=== PATIENT | female | born 1965 | race African-American/Black ===

== ENCOUNTER 2021-07-26 17:50 | Emergency (ER) | payer MEDICAID, OTHER ==
[~2021-07-26] VITALS: Ht 160 cm; Wt 63.0 kg
[2021-07-26] MEDS ORDERED: CEPH500T MT (19:18)
[2021-07-26 19:27] VITALS: BP 128/74
== END 2021-07-26 19:28 | disposition home or self-care (01) ==
LOC: ER 17:50
DX: L03.115 Cellulitis of right lower limb (principal); E05.90 Thyrotoxicosis, unspecified without thyrotoxic crisis or storm
CPT/HCPCS: 99282

== ENCOUNTER 2021-07-29 13:16 | Emergency (ER) | payer OTHER ==
[~2021-07-29] VITALS: Ht 154.9 cm; Wt 77.0 kg
[~2021-07-29 13:16] MED LIST: CEPH500T MT
[2021-07-29 13:33] VITALS: BP 122/82
[2021-07-29] MEDS ORDERED: FLUORESCEIN SODIUM 1MG/STRIP LEFTEYE ONE (15:00)
[2021-07-29] MEDS ORDERED: TETRACAINE 0.5% OPHTH DROPS 4ML LEFTEYE ONE (15:00)
[2021-07-29] MEDS ORDERED: AMOX500T2 PO (16:12)
[2021-07-29] MEDS ORDERED: SULF1TAB48 MT (16:12)
== END 2021-07-29 16:33 | disposition home or self-care (01) ==
LOC: ER 13:16
DX: L03.213 Periorbital cellulitis (principal); Z98.890 Other specified postprocedural states
CPT/HCPCS: 99283

== ENCOUNTER 2021-07-31 12:37 | Emergency (ER) | payer OTHER ==
[~2021-07-31] VITALS: Ht 165.1 cm; Wt 75.0 kg
[~2021-07-31 12:37] MED LIST changes: +AMOX500T2 PO; +SULF1TAB48 MT
[2021-07-31 12:44] VITALS: BP 138/93
[2021-07-31] MEDS ORDERED: CETI-338 PO (14:47)
[2021-07-31] MEDS ORDERED: HYDR453.3 TP (14:47)
== END 2021-07-31 14:53 | disposition home or self-care (01) ==
LOC: ER 12:37
DX: S00.86XA Insect bite (nonvenomous) of other part of head, initial encounter (principal); W57.XXXA Bitten or stung by nonvenomous insect and other nonvenomous arthropods, initial encounter; Y93.9 Activity, unspecified; Y92.9 Unspecified place or not applicable
CPT/HCPCS: 99281